=== PATIENT | male | born 1995 | race African-American/Black ===

== ENCOUNTER 2020-02-26 09:14 | Emergency (ER) | payer SELFPAY ==
[~2020-02-26] VITALS: Ht 172.7 cm; Wt 87.0 kg
[2020-02-26 09:25] VITALS: BP 149/94
== END 2020-02-26 10:03 | disposition home or self-care (01) ==
LOC: ER 09:32
DX: H10.13 Acute atopic conjunctivitis, bilateral (principal); F12.10 Cannabis abuse, uncomplicated
CPT/HCPCS: 99282